=== PATIENT | male | born 2000 | race Caucasian/White ===

== ENCOUNTER 2019-12-25 21:33 | Observation (INO) | payer BC, OTHER, SELFPAY ==
[2019-12-26] MEDS ORDERED: MORPHINE 2 MG/ML SYR IV PRN (00:01)
[2019-12-26] MEDS ORDERED: ONDANSETRON 4 MG/2 ML VIAL IV PRN (00:01)
[2019-12-26 00:46] VITALS: BMI 28.7
[2019-12-26] MEDS: NA CHLORIDE 0.9% 1,000 ML IV SCH ×2 (00:53→11:00)
[2019-12-26] MEDS ORDERED: PIPER/TAZO/NS 3.375gm 6.750 GM/200 ML BAG ONE (00:57)
[2019-12-26] MEDS: PIPER/TAZO/NS 3.375gm 3.375 GM/100 ML BAG IVPB SCH ×2 (01:11→05:53)
[2019-12-26 08:18] LABS: Absolute Lymphocytes (CBC) 1.7 K/uL (0.7-4.9); Basophils % 0.4 % (0-1.3); Hematocrit 40.3 % (39.6-49.0); Lymphocytes % 16.8 % (15.3-44.8); RBC Red Blood Cell Count 4.63 M/uL (4.33-5.43)
[2019-12-26 08:32] LABS: BUN Blood Urea Nitrogen 12 mg/dL (7-18); Bicarbonate 30 mmol/L (21-32); Glucose Level 104 mg/dL (74-106); Potassium 3.9 mmol/L (3.5-5.1); Sodium Level 140 mmol/L (136-145)
[2019-12-26] MEDS ORDERED: BUPIVACA 0.25%/EPI 0.0005%/PF 30 ML VIAL ONE (10:32)
[2019-12-26] MEDS ORDERED: Ringers Lactate 1,000 ML IV ONE (10:37)
[2019-12-26] MEDS ORDERED: FENTANYL CITR 100 MCG/2 ML ONE (10:38)
[2019-12-26] MEDS ORDERED: ROCURONIUM 50 MG/5 ML VIAL IV ONE (10:38)
[2019-12-26] MEDS ORDERED: MIDAZOLAM HCL 2 MG/2 ML INJ ONE (10:38)
[2019-12-26] MEDS ORDERED: LIDOCAINE 1% MPF 5 ML VIAL ONE (10:38)
[2019-12-26] MEDS ORDERED: propofoL 200 MG/20 ML VIAL IV ONE (10:38)
[2019-12-26] MEDS ORDERED: PIPER/TAZO/NS 3.375gm 3.375 GM/100 ML BAG IVPB SCH (11:30)
[2019-12-26] MEDS ORDERED: dexAMETHasone 10 MG/ML VIAL ONE (11:42)
[2019-12-26] MEDS ORDERED: KETOROLAC 30 MG/ML INJ ONE (11:42)
[2019-12-26] MEDS ORDERED: ONDANSETRON 4 MG/2 ML VIAL ONE (11:50)
[2019-12-26] MEDS ORDERED: GLYCOPYRROLATE 0.2 MG/ML SYR ONE (11:50)
[2019-12-26] MEDS ORDERED: NEOSTIGMINE 1 MG/ML -5 ML ONE (11:56)
--- NOTE | 2019-12-26 12:16 | P.OP ---
Preoperative diagnosis: Acute Appendicitis Postoperative diagnosis: Acute Appendicitis Primary procedure: Lapaorosopic Appendectomy Anesthesia: GETA + Local Estimated blood loss: <10cc Specimen: Vermiform Appendix Findings: Acute, Non-perforated appendicitis Complications: None Drain(s): Other Transferred to: Recovery Room Condition: Good
[2019-12-26] MEDS: MEPERIDINE HCL 25 MG/ML SYR ONE ×2 (12:35→12:50)
[2019-12-26] MEDS ORDERED: HYDROCODONE/APAP 7.5/325 MG TAB PO PRN (13:09)
[2019-12-26 13:26] VITALS: BP 109/61; TEMP 98.5; O2SAT 94
--- NOTE | 2019-12-26 13:45 | OP ---
Date of Procedure: 12/26/2019 Surgeon: Stevenson Shipley MD, Preoperative Diagnosis: Acute appendicitis. Postoperative Diagnosis: Acute appendicitis. Procedure Performed: Laparoscopic appendectomy. Anesthesia: General endotracheal plus local with 0.25% Marcaine with epinephrine. Estimated Blood Loss: Less than 10 mL. Specimens: Vermiform appendix. Findings: Acute nonperforated appendicitis. Complications: None. Drains: None. Condition: Transferred to recovery room in good condition. Procedure In Detail: After informed consent was obtained, patient was brought to the operating room and prepped and draped in the usual sterile fashion. After adequate anesthesia was achieved, an infr aumbilical area was anesthetized with 0.25% Marcaine and sharply incised and a 5 mm 0 degree optical trocar was introduced in the abdomen with no evidence of complication. Insufflation was obtained to 15 mmHg at this time. There was no injury to vital structure or injury to the abdomen. The appendix was noted to be within the right lower quadrant with significant inflammatory changes, but no perfor ation. Two additional trocars were placed, 1 in the suprapubic area right to midline and 1 in left l ower quadrant. Both of these were similarly anesthetized and sharply incised. A 5 mm trocar was int roduced into the abdomen with no evidence of complication. The umbilical trocar was then up-sized to a 12 mm under direct visualization without evidence of complication. The patient was positioned hea d down, right sided position. Ratcheted grasper was used to grasp the patient's appendix. Mesoappen diceal window was created. Endo-ZAINAB 35 blue load was fired across the base of the appendix with good approximation of tissues. The mesoappendix was then taken down using a ligature with good hemostasi s. There was no bleeding or leakage from the staple line. The appendix was then placed in EndoCatch bag, removed the umbilical trocar, sent off for pathologic examination. The abdomen was then copiou sly irrigated multiple times and suctioned out completely clear. Patient was positioned in neutral p osition. The umbilical trocar was then removed. The umbilical trocar site was closed using a Castillo -Hemanth suture passer and 0 Vicryl in running fashion with good approximation of tissues. The abdo men was then completely desufflated under direct vision with no evidence of complication. The skin i ncisions were all copiously irrigated and closed with a 4-0 Monocryl in a running fashion. Dermabond placed over top. Patient tolerated the procedure well with no evidence of complication, transferred to the PACU in good condition. All counts were correct at the end of the case. MICHELLE/JUNAID Voice ID: [id number] Report ID: [id number]
--- NOTE | 2019-12-26 22:21 | HP ---
Date of Admission: 12/25/2019 Brief History Of Present Illness: Patient is a 19-year-old male who presents with abdomina l pain beginning approximately yesterday. He ate some salad and thought it was related to that. How ever, the pain got in the periumbilical region, located in the right lower quadrant. He went to [facility] where CT scan was performed, which showed a 13 mm appendix with appendicolith e quivocal for possible appendicitis as such. The patient was seen and transferred here for possible s urgical intervention. The patient states that he continues to have pain in the right lower quadrant [facility]. He has never had similar episodes before in the past. Pain is constant without radiation. It is localized to the right lower quadrant. He has never had similar episodes in the p ast. No sick contacts. No recent travel. No new food exposures. Past Medical History: Negative. Past Surgical History: Negative. Allergies: NO KNOWN DRUG ALLERGIES. Medications: None. Social History: He smokes intermittently cigarettes. Recreational alcohol use only. No drug use. Review of Systems: Ten-point review of systems other than HPI denies. Physical Examination: Vital Signs: At the time of my examination, blood pressure 104/62, pulse is 59, respiratory rate 18, pulse is 59, respiratory rate 18, temperature 97.0. General: He is awake, alert, and oriented. Psychiatric: Appropriate, conversive. HEENT: He is normocephalic. Sclerae icteric. Mucous membranes are moist. Oropharynx clear. Neck: Supple. No JVD. Chest: Normal expansion and excursion. Cardiovascular: Regular rate and rhythm. Pulmonary: Clear to auscultation bilaterally. Abdomen: Soft with positive right lower quadrant focal peritonitis at [place] point. He has reboun d and guarding voluntarily consistent with possible appendicitis. Extremities: No clubbing, cyanosis, or edema. SKIN: Warm and dry. Laboratory Data: Reveals a white blood cell count of 10.4, hemoglobin 13.9, hematocrit of 40.3, plat elet count is 226, neutrophils are 71%. His sodium is 140, potassium 3.9, chloride 105, carbon dioxi de 30, BUN 12, creatinine 0.8, glucose is 104. He had a CT scan performed of the abdomen and the pelvis at [facility], which showed a 13 mm appendix with a 5 mm appendicolith equivocal for early appendicitis. Assessment And Plan: This is a 19-year-old male who comes in with signs and symptoms of early acute appendicitis. 1.IV fluid hydration. 2.Antibiotic coverage with Zosyn 3.375 IV q.6. 3.I have explained the risks, benefits, and alternatives of laparoscopic, possible open appendectomy including, but not limited to bleeding, infection, damage to surrounding tissues, need for further o peration and procedures. The patient agrees to proceed as indicated. MICHELLE/JUNAID Voice ID: [id number]
== END 2019-12-26 15:10 | disposition home or self-care (01) ==
LOC: 2ND 21:33
PROVIDERS: ADMIT Surgery; ATTEND Surgery
PROC: 0DTJ4ZZ Resection of Appendix, Percutaneous Endoscopic Approach (ICD-10-PCS; principal; 2019-12-26 11:00)
DX: K35.80 Unspecified acute appendicitis (principal); Z11.59 Encounter for screening for other viral diseases; F17.210 Nicotine dependence, cigarettes, uncomplicated
CPT/HCPCS: 85025; 80048; 36415; 88304; 44970; U0002; J2704; J2250; J3010; J2543 ×2; J1100; J2175; J2710; G0378 ×3; J7120; J7030; J2405; J2270